=== PATIENT | male | born 1950 | race American Indian/Alaskan Native ===

== ENCOUNTER 2021-01-22 04:58 | Emergency (ER) | payer MEDICARE ==
[2021-01-22 05:34] LABS: Basophils % (Auto) 0.7 % (0.0-1.8); Eosinophils # (Auto) 0.1 K/mm3 (0.0-0.4); Eosinophils % (Auto) 2.1 % (0.0-4.3); Hematocrit 40.6 % (35.5-45.6); Hemoglobin 13.6 gm/dl (11.8-15.2); Lymphocytes # (Auto) 1.2 K/mm3 (1.2-5.4); Lymphocytes % (Auto) 22.5 % (13.4-35.0); Mean Corpuscular HGB Conc 34 % (32-34); Mean Corpuscular Volume 95 fl (84-94); Monocytes # (Auto) 0.4 K/mm3 (0.0-0.8); Monocytes % (Auto) 7.1 % (0.0-7.3); Platelet Count 193 K/mm3 (140-440); Red Blood Count 4.29 M/mm3 (3.65-5.03)
--- NOTE | 2021-01-22 05:42 | Event Note ---
ED Screening Note Date of service: 01/22/21 Time: 05:30 ED Screening Note: Patient is a 70-year-old male that presents with complaints of generalized abdominal pain. Patient states he is not sure when it started. Patient at this time is alert and oriented x2. Patient is oriented to self and place. Patient is disoriented to date and situation. Patient states he is having pain in his abdomen. Patient states that he fell when getting off the toilet. Report received from EMS. EMS states that the patient developed abdominal pain after drinking out of the toilet. This initial assessment/diagnostic orders/clinical plan/treatment(s) is/are subject to change based on patients health status, clinical progression and re- assessment by fellow clinical providers in the ED. Further treatment and workup at subsequent clinical providers discretion. Patient/guardian urged not to elope from the ED as their condition may be serious if not clinically assessed and managed. Initial orders include: Labs, CT of the abdomen.
[2021-01-22 05:59] LABS: Alanine Aminotransferase 14 units/L (7-56); BUN/Creatinine Ratio 27; Blood Urea Nitrogen 27 mg/dL (9-20); Calcium 9.8 mg/dL (8.4-10.2); Hemolysis Index 6
--- NOTE | 2021-01-22 06:22 | Emergency Department Report ---
ED General Adult HPI - General Chief complaint: Abdominal Pain Stated complaint: ABD PAIN Time Seen by Provider: 01/22/21 05:40 Source: EMS Mode of arrival: Stretcher Limitations: Altered Mental Status, Physical Limitation - History of Present Illness Initial comments: Patient is a 70-year-old male brought to the emergency department by EMS for evaluation of abdominal pain. Per transcriptions patient was drinking toilet water. Patient currently denying abdominal pain, denies nausea vomiting diarrhea. Patient denies chest pain. Severity scale (0 -10): 0 - Related Data Home Medications Medication Instructions Recorded Confirmed Last Taken Aspirin [Aspirin BABY CHEW TAB] 81 mg DAILY 12/13/20 01/22/21 Unknown Pravastatin [Pravachol] 40 mg PO QHS 12/13/20 01/22/21 Unknown amLODIPine 5 mg PO DAILY 12/13/20 01/22/21 Unknown Acetaminophen with Codeine 1 tab PO Q6HR PRN 01/22/21 01/22/21 Unknown [Acetaminophen-Codeine #4 TAB] Quetiapine Fumarate [SEROquel] 25 mg PO HS 01/22/21 01/22/21 Unknown Previous Rx's Medication Instructions Recorded Last Taken Type Famotidine [Pepcid] 20 mg PO BID tablet 12/17/20 Unknown Rx Allergies Allergy/AdvReac Type Severity Reaction Status Date / Time No Known Allergies Allergy Unverified 01/22/21 05:11 ED Review of Systems ROS: Stated complaint: ABD PAIN Other details as noted in HPI Comment: All other systems reviewed and negative ED Past Medical Hx - Past Medical History Previous Medical History?: Yes Hx Hypertension: Yes Hx Dementia: Yes Hx HIV: No - Surgical History Past Surgical History?: Yes Additional Surgical History: unknown - Social History Smoking Status: Unknown if ever smoked - Medications Home Medications: Home Medications Medication Instructions Recorded Confirmed Last Taken Type Aspirin [Aspirin BABY CHEW TAB] 81 mg DAILY 12/13/20 01/22/21 Unknown History Pravastatin [Pravachol] 40 mg PO QHS 12/13/20 01/22/21 Unknown History amLODIPine 5 mg PO DAILY 12/13/20 01/22/21 Unknown History Famotidine [Pepcid] 20 mg PO BID tablet 12/17/20 01/22/21 Unknown Rx Acetaminophen with Codeine 1 tab PO Q6HR PRN 01/22/21 01/22/21 Unknown History [Acetaminophen-Codeine #4 TAB] Quetiapine Fumarate [SEROquel] 25 mg PO HS 01/22/21 01/22/21 Unknown History ED Physical Exam - General Limitations: Other (Dementia) General appearance: alert, in no apparent distress - Head Head exam: Present: atraumatic, normocephalic - Eye Eye exam: Present: normal appearance - ENT ENT exam: Present: mucous membranes moist - Neck Neck exam: Present: normal inspection - Respiratory Respiratory exam: Present: normal lung sounds bilaterally. Absent: respiratory distress - Cardiovascular Cardiovascular Exam: Present: regular rate, normal rhythm. Absent: systolic murmur, diastolic murmur, rubs, gallop - GI/Abdominal GI/Abdominal exam: Present: soft, normal bowel sounds - Rectal Rectal exam: Present: deferred - Extremities Exam Extremities exam: Present: normal inspection - Back Exam Back exam: Present: normal inspection - Neurological Exam Neurological exam: Present: alert, oriented X3 - Psychiatric Psychiatric exam: Present: normal affect, normal mood - Skin Skin exam: Present: warm, dry, intact, normal color, other ((+) swelling, warmth and erythema of distal upper right volar arm into proximal forearm). Absent: rash ED Course Vital Signs 01/22/21 01/22/21 01/22/21 05:11 06:42 06:43 Temperature 94.5 F L 93.3 F L 93.3 F L Pulse Rate 60 Respiratory 13 Rate Blood Pressure 170/94 [Left] O2 Sat by Pulse 98 Oximetry 01/22/21 01/22/21 09:38 09:39 Temperature 97.5 F L 97.5 F L Pulse Rate 67 Respiratory 15 Rate Blood Pressure 144/75 [Left] O2 Sat by Pulse 95 Oximetry - Reevaluation(s) Reevaluation #1: 01/22/21 10:52 Patient treated with IV NS x1 and Diana hugger for possible hypothermia. Patient with normal temperature after brief. On bear hugger, repeat temperature following discontinuation of Diana hugger remains normal. Currently taking aspirin daily and seemingly without discomfort to his arm, consequently not given additional nonsteroidal anti-inflammatory drugs for same, in addition to abdominal pain which brought patient here. Patient currently denies abdominal pain, abdomen is soft and nontender, patient is eating in hospital stretcher requesting more food. 01/22/21 10:53 ED Medical Decision Making - Lab Data Result diagrams: 01/22/21 05:25 01/22/21 05:25 Labs 01/22/21 01/22/21 01/22/21 05:25 05:25 07:39 WBC 5.5 RBC 4.29 Hgb 13.6 Hct 40.6 MCV 95 H MCH 32 MCHC 34 RDW 14.0 Plt Count 193 Lymph % (Auto) 22.5 Martin % (Auto) 7.1 Eos % (Auto) 2.1 Baso % (Auto) 0.7 Lymph # (Auto) 1.2 Martin # (Auto) 0.4 Eos # (Auto) 0.1 Baso # (Auto) 0.0 Seg Neutrophils % 67.6 Seg Neutrophils # 3.7 Sodium 141 Potassium 4.9 Chloride 103.1 Carbon Dioxide 32 H Anion Gap 11 BUN 27 H Creatinine 1.0 Estimated GFR > 60 BUN/Creatinine Ratio 27 Glucose 87 Calcium 9.8 Magnesium 1.90 Total Bilirubin 0.30 AST 20 ALT 14 Alkaline Phosphatase 83 Troponin T < 0.010 Total Protein 6.5 Albumin 4.0 Albumin/Globulin Ratio 1.6 Lipase 31 TSH 01/22/21 07:39 WBC RBC Hgb Hct MCV MCH MCHC RDW Plt Count Lymph % (Auto) Martin % (Auto) Eos % (Auto) Baso % (Auto) Lymph # (Auto) Martin # (Auto) Eos # (Auto) Baso # (Auto) Seg Neutrophils % Seg Neutrophils # Sodium Potassium Chloride Carbon Dioxide Anion Gap BUN Creatinine Estimated GFR BUN/Creatinine Ratio Glucose Calcium Magnesium Total Bilirubin AST ALT Alkaline Phosphatase Troponin T Total Protein Albumin Albumin/Globulin Ratio Lipase TSH 4.140 Vital Signs 01/22/21 01/22/21 01/22/21 05:11 06:42 06:43 Temperature 94.5 F L 93.3 F L 93.3 F L Pulse Rate 60 Respiratory 13 Rate Blood Pressure 170/94 [Left] O2 Sat by Pulse 98 Oximetry 01/22/21 01/22/21 09:38 09:39 Temperature 97.5 F L 97.5 F L Pulse Rate 67 Respiratory 15 Rate Blood Pressure 144/75 [Left] O2 Sat by Pulse 95 Oximetry - EKG Data -: EKG Interpreted by Me (Sinus rhythm at 47, no ST-T changes, normal QRS) - Radiology Data Radiology results: report reviewed Findings [facility] [address] [place] [address] Cat Scan Report Signed Patient: EUGENIE CHAWLA JR MR#: [id number] : 1950 Acct:[id number] Age/Sex: 70 / M ADM Date: 01/22/21 Loc: ED Attending Dr: Ordering Physician: JOSE HERNANDEZ III, MD Date of Service: 01/22/21 Procedure(s): CT abdomen pelvis w con Accession Number(s): [id number] cc: JOSE HERNANDEZ III, MD CT ABDOMEN AND PELVIS WITH CONTRAST INDICATION / CLINICAL INFORMATION: Abdominal pain TECHNIQUE: Axial CT images were obtained through the abdomen and pelvis after IV contrast. All CT scans at this location are performed using CT dose reduction for ALARA by means of automated exposure control. COMPARISON: None available. FINDINGS: LOWER CHEST: No significant abnormality LIVER: No significant abnormality GALLBLADDER/BILIARY TREE: No significant abnormality PANCREAS: No significant abnormality SPLEEN: No significant abnormality ADRENALS: No significant abnormality KIDNEYS / URETER: Bilateral renal cortical scarring with bilateral renal cysts, measuring up to 3.9 cm on the left. No hydronephrosis. URINARY BLADDER: There is asymmetric mural thickening of the anterior bladder. REPRODUCTIVE ORGANS: No significant abnormality STOMACH / SMALL BOWEL: Stomach and small bowel are normal in caliber. No evidence of bowel inflammation. COLON: A large amount of stool is present throughout the colon with stool distending the rectal vault. No mural thickening or pericolonic inflammatory stranding. The appendix is normal in caliber. LYMPH NODES: No significant adenopathy. 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 No abdominal aortic aneurysm. No acute process. OTHER: No free air, free fluid, or focal fluid collection is identified. 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 No acute process IMPRESSION: 1. No acute abnormality of the abdomen or pelvis. 2. Mural thickening of the anterior bladder, which may be related to incomplete distention. Recommend further evaluation with cystoscopy, as bladder mass is not excluded. CT IVP may also be considered. 3. Large amount stool throughout the colon, which may reflect constipation. There is distention of the rectal vault. Correlation for fecal impaction. 4. Other chronic, incidental findings as above. Signer Name: Dede Landin MD Signed: 01/22/2021 7:42 AM Workstation Name: [id number] Transcribed By: FAVIOLA Dictated By: DEDE LANDIN MD Electronically Authenticated By: DEDE LANDIN MD Signed Date/Time: 01/22/21741 DD/ 5 TD/TT: [facility] [address] [place] [address] Vascular Lab Report Signed Patient: EUGENIE CHAWLA JR MR#: [id number] : 1950 Acct:[id number] Age/Sex: 70 / M ADM Date: 01/22/21 Loc: ED Attending Dr: Ordering Physician: STEVENSON BINGHAM MD Date of Service: 01/22/21 Procedure(s): VL venous duplex UE RT Accession Number(s): [id number] cc: STEVENSON BINGHAM MD DUPLEX DOPPLER UPPER EXTREMITY VENOUS, RIGHT INDICATION / CLINICAL INFORMATION: Right hand swelling. TECHNIQUE: Duplex doppler imaging was performed through the veins of the right upper extremity using venous compression and other maneuvers. COMPARISON: None available. FINDINGS: RIGHT INTERNAL JUGULAR VEIN: Negative. RIGHT SUBCLAVIAN VEIN: Negative. RIGHT AXILLARY VEIN: Negative. RIGHT BRACHIAL VEIN: Negative. RIGHT FOREARM VEINS: Negative. RIGHT BASILIC VEIN (SUPERFICIAL): Negative. ADDITIONAL FINDINGS: There is occlusive thrombus in the cephalic vein at the elbow. IMPRESSION: 1. No sonographic evidence for DVT. 2. Superficial thrombophlebitis as above. Signer Name: Jared Drake MD Signed: 01/22/2021 9:31 AM Workstation Name: [id number] Transcribed By: SUSANA Dictated By: Jared Drake MD Electronically Authenticated By: Jared Drake MD Signed Date/Time: 01/22/21930 DD/ 8 TD/TT: Critical care attestation.: If time is entered above; I have spent that time in minutes in the direct care of this critically ill patient, excluding procedure time. ED Disposition Clinical Impression: Abdominal pain, Superficial thrombophlebitis of arm Disposition: DC-01 TO HOME OR SELFCARE Is pt being admited?: No Does the pt Need Aspirin: Yes Condition: Stable Instructions: Thrombophlebitis, Abdominal Pain, Adult, [id number] Additional Instructions: Follow-up with vascular surgery in 1 to 2 days for reevaluation. Return to the emergency department for worsening symptoms. Referrals: ALBERT SMITH MD [Staff Physician] - 3-5 Days PRIMARY CARE, [Primary Care Provider] - 3-5 Days
--- NOTE | 2021-01-22 07:46 | Cat Scan Report ---
CT ABDOMEN AND PELVIS WITH CONTRAST INDICATION / CLINICAL INFORMATION: Abdominal pain TECHNIQUE: Axial CT images were obtained through the abdomen and pelvis after IV contrast. All CT sc ans at this location are performed using CT dose reduction for ALARA by means of automated exposure c ontrol. COMPARISON: None available. FINDINGS: LOWER CHEST: No significant abnormality LIVER: No significant abnormality GALLBLADDER/BILIARY TREE: No significant abnormality PANCREAS: No significant abnormality SPLEEN: No significant abnormality ADRENALS: No significant abnormality KIDNEYS / URETER: Bilateral renal cortical scarring with bilateral renal cysts, measuring up to 3.9 c m on the left. No hydronephrosis. URINARY BLADDER: There is asymmetric mural thickening of the anterior bladder. REPRODUCTIVE ORGANS: No significant abnormality STOMACH / SMALL BOWEL: Stomach and small bowel are normal in caliber. No evidence of bowel inflammati on. COLON: A large amount of stool is present throughout the colon with stool distending the rectal vault . No mural thickening or pericolonic inflammatory stranding. The appendix is normal in caliber. LYMPH NODES: No significant adenopathy. 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 No abdominal aortic aneurysm. No acute process. OTHER: No free air, free fluid, or focal fluid collection is identified. 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 No acute process IMPRESSION: 1. No acute abnormality of the abdomen or pelvis. 2. Mural thickening of the anterior bladder, which may be related to incomplete distention. Recommend further evaluation with cystoscopy, as bladder mass is not excluded. CT IVP may also be considered. 3. Large amount stool throughout the colon, which may reflect constipation. There is distention of th e rectal vault. Correlation for fecal impaction. 4. Other chronic, incidental findings as above. Signer Name: Moody Landin MD Signed: 01/22/2021 7:42 AM Workstation Name: [id number]
[2021-01-22] MEDS ORDERED: SODIUM CHLORIDE IRRI 500 ML 500 ML IR ONE (09:14)
--- NOTE | 2021-01-22 09:36 | Vascular Lab Report ---
DUPLEX DOPPLER UPPER EXTREMITY VENOUS, RIGHT INDICATION / CLINICAL INFORMATION: Right hand swelling. TECHNIQUE: Duplex doppler imaging was performed through the veins of the right upper extremity using venous comp ression and other maneuvers. COMPARISON: None available. FINDINGS: RIGHT INTERNAL JUGULAR VEIN: Negative. RIGHT SUBCLAVIAN VEIN: Negative. RIGHT AXILLARY VEIN: Negative. RIGHT BRACHIAL VEIN: Negative. RIGHT FOREARM VEINS: Negative. RIGHT BASILIC VEIN (SUPERFICIAL): Negative. ADDITIONAL FINDINGS: There is occlusive thrombus in the cephalic vein at the elbow. IMPRESSION: 1. No sonographic evidence for DVT. 2. Superficial thrombophlebitis as above. Signer Name: Jared Drake MD Signed: 01/22/2021 9:31 AM Workstation Name: [id number]
[2021-01-22] MEDS ORDERED: SODIUM CHLORIDE 0.9% 1000 ML 1,000 ML IV ONE (09:58)
[2021-01-22 11:01] LABS: Bilirubin,Urine NEG (Negative); Blood,Urine SM (Negative); Color,Urine Yellow (Yellow); Protein,Urine <15 mg/dL mg/dL (Negative); Urobilinogen,Urine < 2.0 mg/dL (<2.0)
[2021-01-22 12:20] VITALS: BP 144/72
== END 2021-01-22 14:38 | disposition home or self-care (01) ==
LOC: ED 04:58
DX: I80.8 Phlebitis and thrombophlebitis of other sites (principal); R10.9 Unspecified abdominal pain; I10 Essential (primary) hypertension; F03.90 Unspecified dementia, unspecified severity, without behavioral disturbance, psychotic disturbance, mood disturbance, and anxiety; Z79.899 Other long term (current) drug therapy
CPT/HCPCS: 36415; 74177; 80053; 81001; 83690; 83735; 84443; 84484; 85025; 93005; 93971; 96360; 99284; J7030; Q9967